=== PATIENT | male | born 1955 | race African-American/Black ===

== ENCOUNTER 2016-08-21 11:22 | Emergency (ER) | payer OTHER ==
[~2016-08-21] VITALS: Ht 182.9 cm; Wt 114.5 kg
[~2016-08-21 11:22] MED LIST: ACET-784 PO; AMLO-512 PO; ASPI-1093 PO; ATEN50TA PO; ATOR40TA28 PO; AUD NEB; BACL10TA PO; BISA10S PR; DSS100 PO; FLUT16H NASAL; FURO20 PO; GABA-533 PO; GLIP10TA9 PO; IBUP-1547 PO; INSNOV SQ; MET750 PO; METF500T4 PO; MOM30 PO; NICO21T TD; NIZO215C TP; OXYC-158 PO; PANT40TA25 PO; PERID15L MM; PIOG45TA PO; PSEU-191 PO; QUET100T PO; RIVA20TA PO; SIMV-261 PO; TRI115C TP
[2016-08-21 11:31] LABS: GLUCOSE,POINT OF CARE 237 MG/DL (70-110)
[2016-08-21 14:08] LABS: BASOPHILS % (AUTO) 0.2 % (0.0-2.0); EOSINOPHILS % (AUTO) 3.4 % (1.0-6.0); HEMATOCRIT 40.9 % (41-53); HEMOGLOBIN 13.6 g/dL (13.5-17.5); LYMPHOCYTES # (AUTO) 1.3 K/uL (1.0-4.8); LYMPHOCYTES % (AUTO) 17.4 % (22.0-44.0); MEAN CORPUSCULAR HEMOGLOBIN 28.4 pg (26.0-34.0); MEAN CORPUSCULAR HGB CONC 33.3 G/dL (31.0-37.0); MEAN CORPUSCULAR VOLUME 85 fL (80-100); MONOCYTES # (AUTO) 0.5 K/uL (0.1-1.0); MONOCYTES % (AUTO) 6.6 % (2.0-9.0); NEUTROPHILS # (AUTO) 5.5 K/uL (1.8-7.7); NEUTROPHILS % (AUTO) 72.4 % (40.0-70.0); PLATELET COUNT (AUTO) 255 K/uL (150-450); RED CELL DISTRIBUTION WIDTH 13.8 % (11.5-14.5); WHITE BLOOD COUNT (AUTO) 7.6 K/uL (4.5-11.0)
[2016-08-21 14:12] LABS: ANION GAP 6 mmol/L (8-16); CALCIUM, TOTAL 8.3 mg/dL (8.8-10.5); CARBON DIOXIDE 31 mmol/L (22-29); CHLORIDE 100 mmol/L (98-107); CREATININE 1.01 mg/dL (0.60-1.30); GLOMERULAR FILTR. RATE CALC > 60 mL/min (>60); POTASSIUM 3.7 mmol/L (3.5-5.1); SODIUM SERUM 137 mmol/L (136-145); UREA NITROGEN, BLOOD 9 mg/dL (7-18)
[2016-08-21 14:18] LABS: ALANINE AMINOTRANSFERASE 31 U/L (12-78); ALBUMIN 3.9 g/dL (3.4-5.0); ASPARTATE AMINOTRANSFERASE 22 U/L (15-37); BILIRUBIN,TOTAL 0.6 mg/dL (0.1-1.0); TOTAL PROTEIN, SERUM 7.2 g/dL (6.4-8.2)
[2016-08-21 14:20] LABS: PROTHROMBIN TIME 10.7 SEC (9.4-11.6)
[2016-08-21 14:25] LABS: APPEARANCE,URINE CLEAR (CLEAR); GLUCOSE, URINE (UA) 100 mg/dL (NEGATIVE); KETONES,URINE NEGATIVE (NEGATIVE); LEUKOCYTE ESTERASE ,URINE NEGATIVE (NEGATIVE); OCCULT BLOOD,URINE NEGATIVE (NEGATIVE); PROTEIN,URINE NEGATIVE (NEGATIVE)
[2016-08-21 14:28] LABS: B-TYPE NATRIURETIC PEPTIDE 41 pg/mL (0-100)
[2016-08-21 14:32] LABS: ADD UA MICROSCOPIC YES
[2016-08-21 14:33] LABS: RBC,URINE None Seen /HPF (0-2); WBC,URINE 0-2 /HPF (0-5)
[2016-08-21 14:34] LABS: SQUAMOUS EPITHELIAL CELL,UR Few /LPF (None Seen)
[2016-08-21 16:06] VITALS: BP 147/82
== END 2016-08-21 16:09 | disposition home or self-care (01) ==
LOC: EMS 11:23
DX: I10 Essential (primary) hypertension (principal); R10.9 Unspecified abdominal pain; G89.29 Other chronic pain; R51 Headache; M54.9 Dorsalgia, unspecified; F20.9 Schizophrenia, unspecified; E11.40 Type 2 diabetes mellitus with diabetic neuropathy, unspecified; E78.00 Pure hypercholesterolemia, unspecified; F17.210 Nicotine dependence, cigarettes, uncomplicated; Z86.73 Personal history of transient ischemic attack (TIA), and cerebral infarction without residual deficits; Z79.82 Long term (current) use of aspirin; Z79.4 Long term (current) use of insulin
CPT/HCPCS: 82962; 93005; 99285

== ENCOUNTER 2018-04-27 09:23 | Inpatient (IN) | payer OTHER ==
[~2018-04-27] VITALS: Ht 182.9 cm; Wt 137.0 kg
[~2018-04-27 09:23] MED LIST changes: +APIX5TAB PO; -ASPI-1093 PO; -ATEN50TA PO; -BACL10TA PO; -BISA10S PR; -GABA-533 PO; -GLIP10TA9 PO; +GLYC1TAB11 PO; -IBUP-1547 PO; +IBUP-2071 PO; -INSNOV SQ; +METF-960 PO; -METF500T4 PO; -NICO21T TD; -NIZO215C TP; -PANT40TA25 PO; -PERID15L MM; -PIOG45TA PO; +PIOG45TA4 PO; +PREG75 PO; -QUET100T PO; -RIVA20TA PO; +SITA25 PO; -TRI115C TP
[2018-04-27] MEDS ORDERED: IOVERSOL 350 MG/ML 150 ML VIAL ONE (09:37)
[2018-04-27] MEDS ORDERED: SODIUM CHLORIDE 0.9% 100 ML ONE (09:37)
[2018-04-27 09:50] LABS: EOSINOPHILS % (AUTO) 3.6 % (1.0-6.0); HEMATOCRIT 44.3 % (41-53); HEMOGLOBIN 15.6 g/dL (13.5-17.5); LYMPHOCYTES # (AUTO) 1.4 K/uL (1.0-4.8); MEAN CORPUSCULAR HEMOGLOBIN 30.5 pg (26.0-34.0); MEAN CORPUSCULAR HGB CONC 35.3 G/dL (31.0-37.0); MEAN CORPUSCULAR VOLUME 86 fL (80-100); MONOCYTES # (AUTO) 0.7 K/uL (0.1-1.0); MONOCYTES % (AUTO) 9.8 % (2.0-9.0); NEUTROPHILS # (AUTO) 4.4 K/uL (1.8-7.7); NEUTROPHILS % (AUTO) 65.6 % (40.0-70.0); PLATELET COUNT (AUTO) 203 K/uL (150-450); RED BLOOD CELL COUNT(AUTO) 5.13 MIL/uL (4.50-5.90); RED CELL DISTRIBUTION WIDTH 13.6 % (11.5-14.5)
[2018-04-27 10:00] LABS: ANION GAP 6 mmol/L (8-16); CALCIUM, TOTAL 8.6 mg/dL (8.8-10.5); CARBON DIOXIDE 32 mmol/L (22-29); CHLORIDE 97 mmol/L (98-107); CREATININE 1.09 mg/dL (0.60-1.30); GLOMERULAR FILTR. RATE CALC > 60 mL/min (>60); GLUCOSE,RANDOM 245 mg/dL (70-110); POTASSIUM 3.8 mmol/L (3.5-5.1); SODIUM SERUM 135 mmol/L (136-145); UREA NITROGEN, BLOOD 12 mg/dL (7-18)
[2018-04-27 10:06] LABS: ALANINE AMINOTRANSFERASE 42 U/L (12-78); ALBUMIN 4.1 g/dL (3.4-5.0); ALKALINE PHOSPHATASE 81 U/L (46-116); ASPARTATE AMINOTRANSFERASE 26 U/L (15-37); BILIRUBIN,TOTAL 0.8 mg/dL (0.1-1.0); TOTAL PROTEIN, SERUM 7.3 g/dL (6.4-8.2)
[2018-04-27 10:25] LABS: PROTHROMBIN TIME 10.6 SEC (9.4-11.6)
[2018-04-27] MEDS ORDERED: ASPIRIN 325 MG EC TABLET PO ONE (10:30)
[2018-04-27] MEDS ORDERED: SODIUM CHLORIDE 0.9% 1,000 ML IV ONE (10:30)
[2018-04-27] MEDS ORDERED: TEST200V21 SQ (10:47)
[2018-04-27] MEDS ORDERED: CARV12 PO (10:47)
[2018-04-27] MEDS ORDERED: SIMV-259 PO (10:47)
[2018-04-27] MEDS ORDERED: LISI-662 PO (10:47)
[2018-04-27] MEDS ORDERED: TAMS0.4C32 PO (10:47)
[2018-04-27] MEDS ORDERED: KETOROLAC TROMETHAMINE 30 MG/ML VIAL IVP ONE (11:15)
[2018-04-27] MEDS ORDERED: AMLO-511 PO (11:39)
[2018-04-27] MEDS ORDERED: PIOG15TA6 PO (11:39)
[2018-04-27] MEDS ORDERED: FURO80 PO (11:39)
[2018-04-27] MEDS ORDERED: MAGNESIUM HYDROXIDE SUSPENSION 30 ML UDCUP PO PRN (11:45)
[2018-04-27] MEDS: TAMSULOSIN HCL 0.4 MG CAPSULE PO SCH (11:45)
[2018-04-27] MEDS ORDERED: GLYCOPYRROLATE 1 MG TABLET PO PRN (11:45)
[2018-04-27] MEDS ORDERED: ACETAMINOPHEN 325 MG TABLET PO PRN ×2 (11:45)
[2018-04-27] MEDS: SIMVASTATIN 10 MG TABLET PO SCH (11:45)
[2018-04-27] MEDS: CARVEDILOL 12.5 MG TABLET PO SCH ×2 (11:45→20:04)
[2018-04-27] MEDS: LISINOPRIL 20 MG TABLET PO SCH (11:45)
[2018-04-27] MEDS ORDERED: DEXTROSE 50%-WATER 25 GM/50 ML SYRINGE IVP PRN (11:45)
[2018-04-27] MEDS ORDERED: OxyCODONE HCL/ACETAMINOPHEN 5-325 MG TABLET PO PRN (11:45)
[2018-04-27] MEDS: AmLODIPine BESYLATE 5 MG TABLET PO SCH (11:45)
[2018-04-27] MEDS: PREGABALIN 75 MG CAPSULE PO SCH ×2 (11:45→20:04)
[2018-04-27] MEDS ORDERED: ONDANSETRON HCL 4 MG/2 ML VIAL IVP PRN ×2 (11:45)
[2018-04-27] MEDS: FUROSEMIDE 80 MG TABLET PO SCH (11:45)
[2018-04-27] MEDS ORDERED: 0.9% SODIUM CHLORIDE 10 ML SYRINGE IVP PRN ×2 (11:45)
[2018-04-27] MEDS: APIXABAN 5 MG TABLET PO SCH ×2 (11:45→20:04)
[2018-04-27 12:38] VITALS: BP 153/92
[2018-04-27] MEDS: PANTOPRAZOLE SODIUM 40 MG/VIAL IVP SCH (13:24)
[2018-04-27] MEDS: DOCUSATE SODIUM 100 MG CAPSULE PO SCH ×2 (13:24→20:07)
[2018-04-27] MEDS: ATORVASTATIN CALCIUM 40 MG TABLET PO SCH (13:25)
[2018-04-27] MEDS: OxyCODONE HCL/ACETAMINOPHEN 5-325 MG TABLET PO PRN ×2 (13:25→20:04)
[2018-04-27] MEDS: INSULIN LISPRO 100 UNITS/ML SQ PRN ×3 (13:29→20:06)
[2018-04-27 14:50] LABS: CHOLESTEROL 104 mg/dL (131-200); HDL CHOLESTEROL 26 mg/dL (40-60); LDL CHOL (CALC.) 38 mg/dL (0-130); THYROID STIMULATING HORMONE 1.47 uIU/mL (0.36-3.74); TRIGLYCERIDES 200 mg/dL (15-150)
[2018-04-27 15:18] VITALS: BP 111/50
[2018-04-27 15:21] VITALS: BP 148/88
[2018-04-27] MEDS: GABAPENTIN 300 MG CAPSULE PO SCH ×2 (16:37→20:04)
[2018-04-27] MEDS: KETOROLAC TROMETHAMINE 15 MG/ML VIAL IVP PRN (16:46)
[2018-04-27 19:03] LABS: GLUCOMETER DEV NAME(LOC) 5S 2R; GLUCOSE,POINT OF CARE 187 MG/DL (70-110)
[2018-04-27 20:03] VITALS: BP 145/75
[2018-04-27 21:08] LABS: GLUCOMETER DEV NAME(LOC) 5N 1P; GLUCOSE,POINT OF CARE 246 MG/DL (70-110)
[2018-04-27] MEDS: MORPHINE SULFATE 4 MG/ML SYRINGE IVP PRN (22:45)
[2018-04-27 23:37] VITALS: BP 167/92
[2018-04-28] VITALS (7 sets, daily range): BP systolic 142–151; BP diastolic 57–88
[2018-04-28] MEDS: KETOROLAC TROMETHAMINE 15 MG/ML VIAL IVP PRN ×2 (04:08→17:46)
[2018-04-28 05:49] LABS: BASOPHILS % (AUTO) 0.4 % (0.0-2.0); EOSINOPHILS % (AUTO) 3.4 % (1.0-6.0); HEMATOCRIT 42.8 % (41-53); HEMOGLOBIN 14.9 g/dL (13.5-17.5); LYMPHOCYTES % (AUTO) 19.1 % (22.0-44.0); MEAN CORPUSCULAR HEMOGLOBIN 30.2 pg (26.0-34.0); MEAN CORPUSCULAR HGB CONC 34.8 G/dL (31.0-37.0); MEAN CORPUSCULAR VOLUME 87 fL (80-100); MONOCYTES # (AUTO) 0.5 K/uL (0.1-1.0); MONOCYTES % (AUTO) 9.6 % (2.0-9.0); NEUTROPHILS # (AUTO) 3.6 K/uL (1.8-7.7); NEUTROPHILS % (AUTO) 67.5 % (40.0-70.0); PLATELET COUNT (AUTO) 184 K/uL (150-450); RED BLOOD CELL COUNT(AUTO) 4.92 MIL/uL (4.50-5.90); RED CELL DISTRIBUTION WIDTH 13.6 % (11.5-14.5)
[2018-04-28 06:02] LABS: ANION GAP 4 mmol/L (8-16); CALCIUM, TOTAL 7.7 mg/dL (8.8-10.5); CARBON DIOXIDE 33 mmol/L (22-29); CHLORIDE 99 mmol/L (98-107); GLOMERULAR FILTR. RATE CALC > 60 mL/min (>60); GLUCOSE,RANDOM 231 mg/dL (70-110); POTASSIUM 3.7 mmol/L (3.5-5.1); SODIUM SERUM 136 mmol/L (136-145); UREA NITROGEN, BLOOD 9 mg/dL (7-18)
[2018-04-28] MEDS: INSULIN LISPRO 100 UNITS/ML SQ PRN ×4 (06:30→20:27)
[2018-04-28] MEDS: OxyCODONE HCL/ACETAMINOPHEN 5-325 MG TABLET PO PRN ×3 (07:11→21:34)
[2018-04-28] MEDS: DOCUSATE SODIUM 100 MG CAPSULE PO SCH ×2 (08:17→21:00)
[2018-04-28] MEDS: PANTOPRAZOLE SODIUM 40 MG/VIAL IVP SCH (08:17)
[2018-04-28] MEDS: APIXABAN 5 MG TABLET PO SCH ×2 (08:18→20:21)
[2018-04-28] MEDS: CARVEDILOL 12.5 MG TABLET PO SCH ×2 (08:18→20:21)
[2018-04-28] MEDS: TAMSULOSIN HCL 0.4 MG CAPSULE PO SCH (08:18)
[2018-04-28] MEDS: ATORVASTATIN CALCIUM 40 MG TABLET PO SCH (08:19)
[2018-04-28] MEDS: GABAPENTIN 300 MG CAPSULE PO SCH ×3 (08:19→20:21)
[2018-04-28] MEDS: PREGABALIN 75 MG CAPSULE PO SCH ×2 (08:19→20:21)
[2018-04-28] MEDS: FUROSEMIDE 80 MG TABLET PO SCH (08:19)
[2018-04-28] MEDS: LISINOPRIL 20 MG TABLET PO SCH (08:20)
[2018-04-28] MEDS: SIMVASTATIN 10 MG TABLET PO SCH (08:21)
[2018-04-28] MEDS: AmLODIPine BESYLATE 5 MG TABLET PO SCH ×2 (08:22→08:25)
[2018-04-28] MEDS: MORPHINE SULFATE 4 MG/ML SYRINGE IVP PRN (10:24)
[2018-04-28 14:13] LABS: GLUCOMETER DEV NAME(LOC) 5S 1N; GLUCOSE,POINT OF CARE 207 MG/DL (70-110)
[2018-04-28 14:13] LABS: GLUCOMETER DEV NAME(LOC) 5S 2R; GLUCOSE,POINT OF CARE 269 MG/DL (70-110)
[2018-04-28 14:13] LABS: GLUCOMETER DEV NAME(LOC) 5S 2R; GLUCOSE,POINT OF CARE 314 MG/DL (70-110)
[2018-04-28] MEDS: NICOTINE 21 MG/24 HOUR PATCH TD SCH (19:48)
[2018-04-28] MEDS: ZOLPIDEM TARTRATE 5 MG TABLET PO PRN (23:30)
[2018-04-29] MEDS: MORPHINE SULFATE 4 MG/ML SYRINGE IVP PRN ×2 (02:52→15:11)
[2018-04-29 02:53] LABS: GLUCOMETER DEV NAME(LOC) 5S 1N; GLUCOSE,POINT OF CARE 178 MG/DL (70-110)
[2018-04-29 02:53] LABS: GLUCOMETER DEV NAME(LOC) 5S 1N; GLUCOSE,POINT OF CARE 264 MG/DL (70-110)
[2018-04-29 04:40] VITALS: BP 165/83
[2018-04-29] MEDS: INSULIN LISPRO 100 UNITS/ML SQ PRN ×4 (05:57→20:34)
[2018-04-29] MEDS: OxyCODONE HCL/ACETAMINOPHEN 5-325 MG TABLET PO PRN ×3 (06:37→18:36)
[2018-04-29 06:48] LABS: GLUCOMETER DEV NAME(LOC) 5S 1N; GLUCOSE,POINT OF CARE 196 MG/DL (70-110)
[2018-04-29] MEDS ORDERED: LORazepam 2 MG/ML VIAL IVP ONE (07:30)
[2018-04-29 07:31] LABS: BASOPHILS % (AUTO) 0.6 % (0.0-2.0); EOSINOPHILS % (AUTO) 3.5 % (1.0-6.0); HEMATOCRIT 41.7 % (41-53); HEMOGLOBIN 14.7 g/dL (13.5-17.5); LYMPHOCYTES % (AUTO) 16.6 % (22.0-44.0); MEAN CORPUSCULAR HEMOGLOBIN 30.2 pg (26.0-34.0); MEAN CORPUSCULAR HGB CONC 35.3 G/dL (31.0-37.0); MEAN CORPUSCULAR VOLUME 86 fL (80-100); MONOCYTES # (AUTO) 0.6 K/uL (0.1-1.0); MONOCYTES % (AUTO) 10.8 % (2.0-9.0); NEUTROPHILS # (AUTO) 3.9 K/uL (1.8-7.7); NEUTROPHILS % (AUTO) 68.5 % (40.0-70.0); PLATELET COUNT (AUTO) 183 K/uL (150-450); RED BLOOD CELL COUNT(AUTO) 4.87 MIL/uL (4.50-5.90); RED CELL DISTRIBUTION WIDTH 13.5 % (11.5-14.5)
[2018-04-29 07:38] LABS: ANION GAP 4 mmol/L (8-16); CARBON DIOXIDE 35 mmol/L (22-29); CHLORIDE 101 mmol/L (98-107); CREATININE 0.82 mg/dL (0.60-1.30); GLOMERULAR FILTR. RATE CALC > 60 mL/min (>60); GLUCOSE,RANDOM 173 mg/dL (70-110); POTASSIUM 3.9 mmol/L (3.5-5.1); SODIUM SERUM 140 mmol/L (136-145); UREA NITROGEN, BLOOD 10 mg/dL (7-18)
[2018-04-29 08:14] VITALS: BP 155/88
[2018-04-29] MEDS: CARVEDILOL 12.5 MG TABLET PO SCH ×2 (08:16→20:32)
[2018-04-29] MEDS: DOCUSATE SODIUM 100 MG CAPSULE PO SCH ×2 (08:16→20:32)
[2018-04-29] MEDS: APIXABAN 5 MG TABLET PO SCH ×2 (08:16→20:32)
[2018-04-29] MEDS: PANTOPRAZOLE SODIUM 40 MG/VIAL IVP SCH (08:16)
[2018-04-29] MEDS: AmLODIPine BESYLATE 5 MG TABLET PO SCH (08:17)
[2018-04-29] MEDS: FUROSEMIDE 80 MG TABLET PO SCH (08:17)
[2018-04-29] MEDS: ATORVASTATIN CALCIUM 40 MG TABLET PO SCH (08:17)
[2018-04-29] MEDS: GABAPENTIN 300 MG CAPSULE PO SCH ×3 (08:17→20:32)
[2018-04-29] MEDS: TAMSULOSIN HCL 0.4 MG CAPSULE PO SCH (08:17)
[2018-04-29] MEDS: NICOTINE 21 MG/24 HOUR PATCH TD SCH (08:18)
[2018-04-29] MEDS: LISINOPRIL 20 MG TABLET PO SCH (08:18)
[2018-04-29] MEDS: PREGABALIN 75 MG CAPSULE PO SCH ×2 (09:52→20:32)
[2018-04-29 11:20] VITALS: BP 143/72
[2018-04-29 15:43] VITALS: BP 156/84
[2018-04-29] MEDS ORDERED: QUEtiapine FUMARATE 25 MG TABLET PO PRN (18:00)
[2018-04-29 20:31] VITALS: BP 179/81
[2018-04-29] MEDS: OXYGEN THERAPY IH SCH (20:32)
[2018-04-29] MEDS: QUEtiapine FUMARATE 100 MG TABLET PO SCH ×2 (20:32→20:46)
[2018-04-29] MEDS: ZOLPIDEM TARTRATE 5 MG TABLET PO PRN (20:40)
[2018-04-30] VITALS (7 sets, daily range): BP systolic 137–179; BP diastolic 73–94
[2018-04-30] MEDS: OxyCODONE HCL/ACETAMINOPHEN 5-325 MG TABLET PO PRN ×5 (01:17→21:24)
[2018-04-30] MEDS: INSULIN LISPRO 100 UNITS/ML SQ PRN ×4 (05:51→21:25)
[2018-04-30 07:58] LABS: GLUCOMETER DEV NAME(LOC) 5S 1N; GLUCOSE,POINT OF CARE 208 MG/DL (70-110)
[2018-04-30] MEDS: PANTOPRAZOLE SODIUM 40 MG/VIAL IVP SCH (08:56)
[2018-04-30] MEDS: GABAPENTIN 300 MG CAPSULE PO SCH ×3 (08:56→21:23)
[2018-04-30] MEDS: DOCUSATE SODIUM 100 MG CAPSULE PO SCH ×2 (08:56→21:23)
[2018-04-30] MEDS: AmLODIPine BESYLATE 5 MG TABLET PO SCH (08:56)
[2018-04-30] MEDS: ATORVASTATIN CALCIUM 40 MG TABLET PO SCH (08:56)
[2018-04-30] MEDS: PREGABALIN 75 MG CAPSULE PO SCH ×2 (08:57→21:23)
[2018-04-30] MEDS: APIXABAN 5 MG TABLET PO SCH ×2 (08:57→21:23)
[2018-04-30] MEDS: CARVEDILOL 12.5 MG TABLET PO SCH ×2 (08:57→21:23)
[2018-04-30] MEDS: LISINOPRIL 20 MG TABLET PO SCH (08:57)
[2018-04-30] MEDS: NICOTINE 21 MG/24 HOUR PATCH TD SCH (08:58)
[2018-04-30] MEDS: FUROSEMIDE 80 MG TABLET PO SCH (08:59)
[2018-04-30] MEDS: OXYGEN THERAPY IH SCH ×2 (09:11→21:30)
[2018-04-30] MEDS: TAMSULOSIN HCL 0.4 MG CAPSULE PO SCH (09:11)
[2018-04-30] MEDS: QUEtiapine FUMARATE 100 MG TABLET PO SCH (21:00)
[2018-04-30] MEDS: ZOLPIDEM TARTRATE 5 MG TABLET PO PRN (22:31)
[2018-04-30 23:08] LABS: GLUCOMETER DEV NAME(LOC) 5S 2R; GLUCOSE,POINT OF CARE 209 MG/DL (70-110)
[2018-05-01] MEDS: OxyCODONE HCL/ACETAMINOPHEN 5-325 MG TABLET PO PRN ×5 (02:10→23:26)
[2018-05-01 04:55] VITALS: BP 156/95
[2018-05-01] MEDS: INSULIN LISPRO 100 UNITS/ML SQ PRN ×4 (05:28→20:54)
[2018-05-01 07:47] VITALS: BP 164/77
[2018-05-01] MEDS: ATORVASTATIN CALCIUM 40 MG TABLET PO SCH (08:29)
[2018-05-01] MEDS: CARVEDILOL 12.5 MG TABLET PO SCH ×2 (08:30→20:45)
[2018-05-01] MEDS: GABAPENTIN 300 MG CAPSULE PO SCH ×3 (08:30→20:49)
[2018-05-01] MEDS: TAMSULOSIN HCL 0.4 MG CAPSULE PO SCH (08:31)
[2018-05-01] MEDS: DOCUSATE SODIUM 100 MG CAPSULE PO SCH ×2 (08:31→20:45)
[2018-05-01] MEDS: NICOTINE 21 MG/24 HOUR PATCH TD SCH (08:32)
[2018-05-01] MEDS: APIXABAN 5 MG TABLET PO SCH ×2 (08:33→20:48)
[2018-05-01] MEDS: PANTOPRAZOLE SODIUM 40 MG/VIAL IVP SCH (08:33)
[2018-05-01] MEDS: FUROSEMIDE 80 MG TABLET PO SCH (08:34)
[2018-05-01] MEDS: PREGABALIN 75 MG CAPSULE PO SCH ×2 (08:35→20:48)
[2018-05-01] MEDS: AmLODIPine BESYLATE 5 MG TABLET PO SCH (08:37)
[2018-05-01] MEDS: OXYGEN THERAPY IH SCH ×2 (08:45→20:44)
[2018-05-01 09:47] VITALS: BP 158/84
[2018-05-01] MEDS: LISINOPRIL 20 MG TABLET PO SCH (09:52)
[2018-05-01 11:32] VITALS: BP 155/78
[2018-05-01] MEDS: DEXAMETHASONE 4 MG TABLET PO SCH ×2 (12:35→20:45)
[2018-05-01 15:23] VITALS: BP 153/62
[2018-05-01 19:55] VITALS: BP 157/97
[2018-05-01] MEDS: QUEtiapine FUMARATE 100 MG TABLET PO SCH (20:49)
[2018-05-01] MEDS: MORPHINE SULFATE 4 MG/ML SYRINGE IVP PRN (20:50)
[2018-05-01 21:09] LABS: GLUCOMETER DEV NAME(LOC) 5N 1P; GLUCOSE,POINT OF CARE 273 MG/DL (70-110)
[2018-05-01 21:09] LABS: GLUCOMETER DEV NAME(LOC) 5N 1P; GLUCOSE,POINT OF CARE 240 MG/DL (70-110)
[2018-05-01 21:09] LABS: GLUCOMETER DEV NAME(LOC) 5N 1P; GLUCOSE,POINT OF CARE 250 MG/DL (70-110)
[2018-05-01 21:09] LABS: GLUCOMETER DEV NAME(LOC) 5N 1P; GLUCOSE,POINT OF CARE 268 MG/DL (70-110)
[2018-05-01 21:09] LABS: GLUCOMETER DEV NAME(LOC) 5N 1P; GLUCOSE,POINT OF CARE 260 MG/DL (70-110)
[2018-05-01 21:10] LABS: GLUCOMETER DEV NAME(LOC) 5S 2R; GLUCOSE,POINT OF CARE 267 MG/DL (70-110)
[2018-05-01] MEDS: ZOLPIDEM TARTRATE 5 MG TABLET PO PRN (22:08)
[2018-05-02 00:28] VITALS: BP 153/67
[2018-05-02] MEDS: OxyCODONE HCL/ACETAMINOPHEN 5-325 MG TABLET PO PRN ×2 (03:54→09:30)
[2018-05-02 05:04] VITALS: BP 169/90
[2018-05-02] MEDS: INSULIN LISPRO 100 UNITS/ML SQ PRN (06:12)
[2018-05-02 06:29] LABS: BASOPHILS % (AUTO) 0.3 % (0.0-2.0); EOSINOPHILS % (AUTO) 0 % (1.0-6.0); HEMATOCRIT 46.9 % (41-53); HEMOGLOBIN 16.9 g/dL (13.5-17.5); LYMPHOCYTES # (AUTO) 0.6 K/uL (1.0-4.8); LYMPHOCYTES % (AUTO) 7.7 % (22.0-44.0); MEAN CORPUSCULAR HEMOGLOBIN 30.8 pg (26.0-34.0); MEAN CORPUSCULAR VOLUME 86 fL (80-100); MONOCYTES # (AUTO) 0.3 K/uL (0.1-1.0); NEUTROPHILS # (AUTO) 6.9 K/uL (1.8-7.7); PLATELET COUNT (AUTO) 238 K/uL (150-450); RED BLOOD CELL COUNT(AUTO) 5.47 MIL/uL (4.50-5.90); RED CELL DISTRIBUTION WIDTH 13.4 % (11.5-14.5)
[2018-05-02 06:48] LABS: ANION GAP 2 mmol/L (8-16); CALCIUM, TOTAL 8.9 mg/dL (8.8-10.5); CARBON DIOXIDE 34 mmol/L (22-29); CHLORIDE 95 mmol/L (98-107); CREATININE 1.16 mg/dL (0.60-1.30); GLOMERULAR FILTR. RATE CALC > 60 mL/min (>60); GLUCOSE,RANDOM 330 mg/dL (70-110); POTASSIUM 4.7 mmol/L (3.5-5.1); SODIUM SERUM 131 mmol/L (136-145); UREA NITROGEN, BLOOD 13 mg/dL (7-18)
[2018-05-02 07:11] VITALS: BP 142/82
[2018-05-02] MEDS: OXYGEN THERAPY IH SCH (08:55)
[2018-05-02] MEDS: PANTOPRAZOLE SODIUM 40 MG/VIAL IVP SCH (09:18)
[2018-05-02] MEDS: AmLODIPine BESYLATE 5 MG TABLET PO SCH (09:25)
[2018-05-02] MEDS: LISINOPRIL 20 MG TABLET PO SCH (09:25)
[2018-05-02] MEDS: DOCUSATE SODIUM 100 MG CAPSULE PO SCH (09:25)
[2018-05-02] MEDS: TAMSULOSIN HCL 0.4 MG CAPSULE PO SCH (09:25)
[2018-05-02] MEDS: ATORVASTATIN CALCIUM 40 MG TABLET PO SCH (09:25)
[2018-05-02] MEDS: FUROSEMIDE 80 MG TABLET PO SCH (09:26)
[2018-05-02] MEDS: GABAPENTIN 300 MG CAPSULE PO SCH (09:26)
[2018-05-02] MEDS: APIXABAN 5 MG TABLET PO SCH (09:26)
[2018-05-02] MEDS: NICOTINE 21 MG/24 HOUR PATCH TD SCH (09:27)
[2018-05-02] MEDS: DEXAMETHASONE 4 MG TABLET PO SCH (09:28)
[2018-05-02] MEDS: PREGABALIN 75 MG CAPSULE PO SCH (09:28)
[2018-05-02] MEDS ORDERED: METH8TAB PO (10:59)
[2018-05-02 11:08] VITALS: BP 156/97
[2018-05-02] MEDS: CARVEDILOL 12.5 MG TABLET PO SCH (11:35)
[2018-05-03 12:04] LABS: GLUCOMETER DEV NAME(LOC) 5S 1N; GLUCOSE,POINT OF CARE 312 MG/DL (70-110)
[2018-05-03 12:04] LABS: GLUCOMETER DEV NAME(LOC) 5S 1N; GLUCOSE,POINT OF CARE 364 MG/DL (70-110)
[2018-05-03 12:04] LABS: GLUCOMETER DEV NAME(LOC) 5S 1N; GLUCOSE,POINT OF CARE 332 MG/DL (70-110)
[2018-05-03 12:04] LABS: GLUCOMETER DEV NAME(LOC) 5S 1N; GLUCOSE,POINT OF CARE 321 MG/DL (70-110)
== END 2018-05-02 12:00 | disposition home or self-care (01) | DRG 47 ==
LOC: EMS 09:24 → 5S 11:14
PROVIDERS: ADMIT Internal Medicine; ATTEND Internal Medicine
DX: G45.9 Transient cerebral ischemic attack, unspecified (principal); E11.40 Type 2 diabetes mellitus with diabetic neuropathy, unspecified; R45.851 Suicidal ideations; M48.02 Spinal stenosis, cervical region; E78.00 Pure hypercholesterolemia, unspecified; I10 Essential (primary) hypertension; M47.22 Other spondylosis with radiculopathy, cervical region; F17.210 Nicotine dependence, cigarettes, uncomplicated; F20.9 Schizophrenia, unspecified; F60.0 Paranoid personality disorder; F32.9 Major depressive disorder, single episode, unspecified; F41.9 Anxiety disorder, unspecified; G89.29 Other chronic pain; M54.81 Occipital neuralgia; M79.18 Myalgia, other site; M77.9 Enthesopathy, unspecified; Z79.01 Long term (current) use of anticoagulants; Z86.718 Personal history of other venous thrombosis and embolism; Z79.899 Other long term (current) drug therapy; Z23 Encounter for immunization
CPT/HCPCS: 70496; 70551; 72141; 82947; 84443; 86850; 86900; 86901; 90686; 92610; 93005; 93306; 93880; 96361; 96374; 97116; 97162; 97530; 99291; C9113; G0378; J1885; J2060; J2270; J7030; J7050; J8540

== ENCOUNTER 2018-09-19 10:15 | Inpatient (IN) | payer OTHER ==
[~2018-09-19] VITALS: Ht 188 cm; Wt 136.7 kg
[~2018-09-19 10:15] MED LIST changes: -ACET-784 PO; +AMLO-511 PO; -AMLO-512 PO; -AUD NEB; +CARV12 PO; -DSS100 PO; -FLUT16H NASAL; -FURO20 PO; +FURO80 PO; -GLYC1TAB11 PO; -IBUP-2071 PO; +LISI-662 PO; -MET750 PO; -MOM30 PO; +NICO-650 TD; +PIOG15TA6 PO; -PIOG45TA4 PO; -PSEU-191 PO; +SENN-176 PO; -SIMV-261 PO; +TAMS0.4C32 PO; +TEST200V21 IM
[2018-09-19] MEDS ORDERED: RINGERS SOLUTION,LACTATED 1,000 ML IV ONE ×3 (10:24→15:29)
[2018-09-19] MEDS ORDERED: VANCOMYCIN HCL 1 GM/D5% WATER 200 ML IV ONE ×3 (12:30→15:00)
[2018-09-19] MEDS ORDERED: ACETAMINOPHEN 1000 MG/ISO-OSM 100 ML IV ONE (12:39)
[2018-09-19] MEDS ORDERED: PROPOFOL 1000 MG/ISO-OSM 100 ML IV ONE (12:54)
[2018-09-19 13:08] LABS: GLUCOMETER DEV NAME(LOC) SDS.; GLUCOSE,POINT OF CARE 149 MG/DL (70-110)
[2018-09-19] MEDS ORDERED: VANCOMYCIN HCL 1 GM/VIAL ONE ×2 (13:09→14:16)
[2018-09-19] MEDS ORDERED: BUPIVACAINE HCL/PF 0.5% 30 ML VIAL ONE (13:09)
[2018-09-19] MEDS ORDERED: BACITRACIN 50,000 UNITS/VIAL ONE (13:09)
[2018-09-19] MEDS ORDERED: BUPIVACAINE LIPOSOME/PF 1.3%-13.3MG/ML SUSPENSION 20 ML VIAL INJ ONE (13:15)
[2018-09-19] MEDS ORDERED: SODIUM CHLORIDE 0.9% 0 ML ONE (14:16)
[2018-09-19] MEDS ORDERED: HYDROmorphone 2 MG/ML SYRINGE IVP PRN (15:00)
[2018-09-19] MEDS ORDERED: MEPERIDINE-PF 25 MG/ML VIAL IVP PRN (15:00)
[2018-09-19] MEDS ORDERED: CYCLOBENZAPRINE HCL 10 MG TABLET PO PRN (15:00)
[2018-09-19] MEDS ORDERED: FentaNYL CITRATE-PF 100 MCG/2 ML VIAL IVP PRN (15:00)
[2018-09-19] MEDS ORDERED: SUGAMMADEX SODIUM 200 MG/2 ML VIAL IVP ONE (15:14)
[2018-09-19] MEDS: HYDROmorphone 2 MG/ML SYRINGE IVP PRN ×2 (16:20→16:30)
[2018-09-19] MEDS ORDERED: MEPERIDINE-PF 25 MG/ML VIAL ONE (16:22)
[2018-09-19] MEDS ORDERED: HYDROmorphone 2 MG/ML SYRINGE ONE (16:27)
[2018-09-19] MEDS ORDERED: FentaNYL CITRATE-PF 100 MCG/2 ML VIAL ONE (16:35)
[2018-09-19 18:09] VITALS: BP 144/80
[2018-09-19] MEDS: ACETAMINOPHEN 500 MG TABLET PO SCH ×2 (19:00→19:58)
[2018-09-19] MEDS ORDERED: MAGNESIUM HYDROXIDE SUSPENSION 30 ML UDCUP PO PRN (19:45)
[2018-09-19] MEDS ORDERED: HYDROCODONE/ACETAMINOPHEN 5-325 MG TABLET PO PRN (19:45)
[2018-09-19] MEDS ORDERED: IPRATROPIUM BROMIDE 0.5 MG/2.5 ML NEB SOLUTION NEB PRN (19:45)
[2018-09-19] MEDS ORDERED: ONDANSETRON HCL 4 MG/2 ML VIAL IVP PRN (19:45)
[2018-09-19] MEDS ORDERED: BISACODYL 10 MG RECTAL RECTAL SUPPOSITORY PR PRN (19:45)
[2018-09-19] MEDS ORDERED: ALBUTEROL SULFATE 2.5 MG/0.5 ML NEB SOLUTION NEB PRN (19:45)
[2018-09-19] MEDS ORDERED: ACETAMINOPHEN 325 MG TABLET PO PRN (19:45)
[2018-09-19] MEDS ORDERED: ZOLPIDEM TARTRATE 5 MG TABLET PO PRN (19:45)
[2018-09-19 19:58] VITALS: BP 152/79
[2018-09-19 19:58] LABS: GLUCOMETER DEV NAME(LOC) 4E.; GLUCOSE,POINT OF CARE 184 MG/DL (70-110)
[2018-09-19] MEDS: MORPHINE SULFATE 2 MG/ML SYRINGE IVP PRN (20:09)
[2018-09-19] MEDS: AmLODIPine BESYLATE 5 MG TABLET PO SCH (20:10)
[2018-09-19] MEDS: DOCUSATE SODIUM 100 MG CAPSULE PO SCH (20:10)
[2018-09-19] MEDS ORDERED: DEXTROSE 50%-WATER 25 GM/50 ML SYRINGE IVP PRN (21:00)
[2018-09-19] MEDS: INSULIN LISPRO 100 UNITS/ML SQ PRN (21:10)
[2018-09-19] MEDS: NICOTINE 21 MG/24 HOUR PATCH TD SCH (21:11)
[2018-09-19] MEDS: CARVEDILOL 12.5 MG TABLET PO SCH (21:11)
[2018-09-19] MEDS: PREGABALIN 75 MG CAPSULE PO SCH (21:11)
[2018-09-19] MEDS ORDERED: KETOROLAC TROMETHAMINE 15 MG/ML VIAL IVP SCH (22:00)
[2018-09-19] MEDS: KETOROLAC TROMETHAMINE 30 MG/ML VIAL IVP SCH (22:19)
[2018-09-20] MEDS: GLYCOPYRROLATE 1 MG TABLET PO SCH ×4 (00:04→17:39)
[2018-09-20 00:06] VITALS: BP 124/73
[2018-09-20] MEDS: MORPHINE SULFATE 2 MG/ML SYRINGE IVP PRN ×5 (00:10→14:43)
[2018-09-20] MEDS: ACETAMINOPHEN 500 MG TABLET PO SCH ×3 (01:00→13:00)
[2018-09-20 02:34] LABS: GLUCOMETER DEV NAME(LOC) 4E.; GLUCOSE,POINT OF CARE 207 MG/DL (70-110)
[2018-09-20] MEDS: KETOROLAC TROMETHAMINE 30 MG/ML VIAL IVP SCH ×3 (04:00→15:59)
[2018-09-20 04:07] VITALS: BP 143/74
[2018-09-20] MEDS: INSULIN LISPRO 100 UNITS/ML SQ PRN ×3 (06:06→17:18)
[2018-09-20] MEDS ORDERED: KETAMINE HCL 50 MG/ML 10 ML VIAL IVP ONE (06:07)
[2018-09-20] MEDS ORDERED: DEXAMETHASONE SOD PHOS 4 MG/ML VIAL IVP ONE (06:07)
[2018-09-20] MEDS ORDERED: LIDOCAINE/PF 2% 5 ML VIAL IM ONE (06:07)
[2018-09-20] MEDS ORDERED: KETOROLAC TROMETHAMINE 60 MG/2 ML VIAL IM ONE (06:07)
[2018-09-20] MEDS ORDERED: SUCCINYLCHOLINE CHLORIDE 20 MG/ML 10 ML VIAL IVP ONE (06:07)
[2018-09-20] MEDS ORDERED: ROCURONIUM BROMIDE 10 MG/ML 5 ML VIAL IVP ONE (06:07)
[2018-09-20] MEDS ORDERED: MIDAZOLAM HCL 2 MG/2 ML VIAL IVP ONE (06:07)
[2018-09-20] MEDS ORDERED: ONDANSETRON HCL 4 MG/2 ML VIAL IVP ONE (06:07)
[2018-09-20] MEDS ORDERED: PROPOFOL 1% 20 ML VIAL IVP ONE (06:07)
[2018-09-20 06:08] LABS: BASOPHILS % (AUTO) 0.2 % (0.0-2.0); EOSINOPHILS % (AUTO) 0 % (1.0-6.0); HEMOGLOBIN 15.8 g/dL (13.5-17.5); LYMPHOCYTES # (AUTO) 0.5 K/uL (1.0-4.8); LYMPHOCYTES % (AUTO) 6.2 % (22.0-44.0); MEAN CORPUSCULAR HEMOGLOBIN 30.8 pg (26.0-34.0); MEAN CORPUSCULAR HGB CONC 35.2 G/dL (31.0-37.0); MEAN CORPUSCULAR VOLUME 88 fL (80-100); MONOCYTES # (AUTO) 0.2 K/uL (0.1-1.0); MONOCYTES % (AUTO) 2.8 % (2.0-9.0); NEUTROPHILS # (AUTO) 7.9 K/uL (1.8-7.7); PLATELET COUNT (AUTO) 195 K/uL (150-450); RED BLOOD CELL COUNT(AUTO) 5.13 MIL/uL (4.50-5.90); RED CELL DISTRIBUTION WIDTH 13.5 % (11.5-14.5)
[2018-09-20 06:19] LABS: ALANINE AMINOTRANSFERASE 27 U/L (12-78); ALBUMIN 3.8 g/dL (3.4-5.0); ALKALINE PHOSPHATASE 65 U/L (46-116); ANION GAP 7 mmol/L (8-16); ASPARTATE AMINOTRANSFERASE 18 U/L (15-37); BILIRUBIN,TOTAL 0.7 mg/dL (0.1-1.0); CALCIUM, TOTAL 8.9 mg/dL (8.8-10.5); CARBON DIOXIDE 29 mmol/L (22-29); CHLORIDE 100 mmol/L (98-107); CREATININE 0.95 mg/dL (0.60-1.30); GLOMERULAR FILTR. RATE CALC > 60 mL/min (>60); GLUCOSE,RANDOM 217 mg/dL (70-110); POTASSIUM 4.2 mmol/L (3.5-5.1); SODIUM SERUM 136 mmol/L (136-145); TOTAL PROTEIN, SERUM 7.4 g/dL (6.4-8.2); UREA NITROGEN, BLOOD 12 mg/dL (7-18)
[2018-09-20 06:24] LABS: GLUCOMETER DEV NAME(LOC) 4E.; GLUCOSE,POINT OF CARE 223 MG/DL (70-110)
[2018-09-20] MEDS ORDERED: LINACLOTIDE 72 MCG PO SCH (06:30)
[2018-09-20] MEDS ORDERED: LINACLOTIDE 290 MCG CAPSULE PO SCH (06:30)
[2018-09-20 06:49] LABS: NEUTROPHILS % (AUTO) 90.8 % (40.0-70.0)
[2018-09-20 07:45] VITALS: BP 150/88
[2018-09-20] MEDS: OxyCODONE HCL/ACETAMINOPHEN 10-325 MG TABLET PO PRN ×3 (08:58→17:38)
[2018-09-20] MEDS ORDERED: NICOTINE 21 MG/24 HOUR PATCH TD SCH (09:00)
[2018-09-20] MEDS ORDERED: FUROSEMIDE 80 MG TABLET PO SCH (09:00)
[2018-09-20] MEDS ORDERED: ATORVASTATIN CALCIUM 40 MG TABLET PO SCH (09:00)
[2018-09-20] MEDS ORDERED: TAMSULOSIN HCL 0.4 MG CAPSULE PO SCH (09:00)
[2018-09-20] MEDS ORDERED: SitaGLIPtin PHOSPHATE 100 MG TABLET PO SCH (09:00)
[2018-09-20] MEDS ORDERED: SitaGLIPtin PHOSPHATE 25 MG TABLET PO SCH (09:00)
[2018-09-20] MEDS ORDERED: LISINOPRIL 20 MG TABLET PO SCH (09:00)
[2018-09-20] MEDS ORDERED: PANTOPRAZOLE SODIUM 40 MG/VIAL IVP SCH (09:00)
[2018-09-20] MEDS ORDERED: PIOGLITAZONE HCL 15 MG TABLET PO SCH (09:00)
[2018-09-20] MEDS: MetFORMIN HCL 500 MG TABLET PO SCH ×2 (09:06→17:38)
[2018-09-20] MEDS: AmLODIPine BESYLATE 5 MG TABLET PO SCH (09:07)
[2018-09-20] MEDS: DOCUSATE SODIUM 100 MG CAPSULE PO SCH (09:07)
[2018-09-20] MEDS: SIMVASTATIN 10 MG TABLET PO SCH ×2 (09:08→09:20)
[2018-09-20] MEDS: NICOTINE 21 MG/24 HOUR PATCH TD SCH (09:09)
[2018-09-20] MEDS: PREGABALIN 75 MG CAPSULE PO SCH (09:09)
[2018-09-20] MEDS: CARVEDILOL 12.5 MG TABLET PO SCH (09:09)
[2018-09-20] MEDS ORDERED: SITA100 PO (11:10)
[2018-09-20 12:05] VITALS: BP 143/76
[2018-09-20 16:20] VITALS: BP 144/69
[2018-09-20 20:28] LABS: GLUCOMETER DEV NAME(LOC) 6N.2; GLUCOSE,POINT OF CARE 173 MG/DL (70-110)
[2018-09-26] MEDS ORDERED: TESTOSTERONE CYPIONATE 200 MG/ML VIAL IM SCH (09:00)
== END 2018-09-20 19:30 | DRG 321 ==
LOC: 5N 10:15 → 4E 15:19
PROVIDERS: ADMIT Neurological Surgery; ATTEND Neurological Surgery
PROC: 0RG10A0 Fusion of Cervical Vertebral Joint with Interbody Fusion Device, Anterior Approach, Anterior Column, Open Approach (ICD-10-PCS; 2018-09-19)
PROC: 0RB30ZZ Excision of Cervical Vertebral Disc, Open Approach (ICD-10-PCS; principal; 2018-09-19 13:00)
DX: M48.02 Spinal stenosis, cervical region (principal); F20.9 Schizophrenia, unspecified; E11.9 Type 2 diabetes mellitus without complications; E78.5 Hyperlipidemia, unspecified; F41.9 Anxiety disorder, unspecified; I10 Essential (primary) hypertension; E78.00 Pure hypercholesterolemia, unspecified; Z83.3 Family history of diabetes mellitus; Z82.49 Family history of ischemic heart disease and other diseases of the circulatory system; Z86.73 Personal history of transient ischemic attack (TIA), and cerebral infarction without residual deficits
CPT/HCPCS: 72040; 87081; 97162; 97530; C9113; C9290; G0238; J0131; J0330; J1100; J1170; J1885; J2175; J2250; J2270; J2405; J2704; J3010; J3370; J3490; J7050; J7120

== ENCOUNTER 2020-09-27 10:15 | Emergency (ER) | payer OTHER ==
[~2020-09-27] VITALS: Ht 188 cm; Wt 127.3 kg
[~2020-09-27 10:15] MED LIST changes: +AMLO-257 PO; -AMLO-511 PO; -LISI-662 PO; +LISI-894 PO; -SENN-176 PO; +SENN-277 PO; +SITA100 PO; -SITA25 PO; +TAMS-13 PO; -TAMS0.4C32 PO
[2020-09-27 10:34] LABS: GLUCOSE,POINT OF CARE 117 MG/DL (70-110)
[2020-09-27 11:45] VITALS: BP 133/75
== END 2020-09-27 12:18 | disposition home or self-care (01) ==
LOC: EMS 10:15
DX: H61.23 Impacted cerumen, bilateral (principal); E11.9 Type 2 diabetes mellitus without complications; E78.00 Pure hypercholesterolemia, unspecified; I10 Essential (primary) hypertension; F20.9 Schizophrenia, unspecified; G89.29 Other chronic pain; F17.210 Nicotine dependence, cigarettes, uncomplicated
CPT/HCPCS: 69209; 96372; 99282; 99285

== ENCOUNTER 2021-11-02 10:18 | Emergency (ER) | payer OTHER ==
[~2021-11-02] VITALS: Ht 188 cm; Wt 127.3 kg
[~2021-11-02 10:18] MED LIST changes: +METF-1211 PO; -METF-960 PO; -PIOG15TA6 PO; -SENN-277 PO; -TAMS-13 PO
[2021-11-02 11:27] LABS: BASOPHILS % (AUTO) 0.9 % (0.0-2.0); EOSINOPHILS % (AUTO) 3.9 % (1.0-6.0); HEMATOCRIT 47.5 % (41-53); HEMOGLOBIN 17.1 g/dL (13.5-17.5); LYMPHOCYTES # (AUTO) 1.2 K/uL (1.0-4.8); LYMPHOCYTES % (AUTO) 17.8 % (22.0-44.0); MEAN CORPUSCULAR HEMOGLOBIN 32.5 pg (26.0-34.0); MEAN CORPUSCULAR HGB CONC 35.9 G/dL (31.0-37.0); MEAN CORPUSCULAR VOLUME 90 fL (80-100); MONOCYTES # (AUTO) 0.6 K/uL (0.1-1.0); MONOCYTES % (AUTO) 8.9 % (2.0-9.0); NEUTROPHILS # (AUTO) 4.7 K/uL (1.8-7.7); NEUTROPHILS % (AUTO) 68.5 % (40.0-70.0); PLATELET COUNT (AUTO) 217 K/uL (150-450); RED BLOOD CELL COUNT(AUTO) 5.26 MIL/uL (4.50-5.90); RED CELL DISTRIBUTION WIDTH 12.9 % (11.5-14.5)
[2021-11-02 11:39] LABS: ANION GAP 7 mmol/L (8-16); CALCIUM, TOTAL 8.9 mg/dL (8.8-10.5); CARBON DIOXIDE 30 mmol/L (22-29); CHLORIDE 101 mmol/L (98-107); CREATININE 0.87 mg/dL (0.60-1.30); GLOMERULAR FILTR. RATE CALC > 60 mL/min (>60); GLUCOSE,RANDOM 132 mg/dL (70-110); POTASSIUM 3.7 mmol/L (3.5-5.1); SODIUM SERUM 138 mmol/L (136-145); UREA NITROGEN, BLOOD 17 mg/dL (7-18)
[2021-11-02 11:53] LABS: ALANINE AMINOTRANSFERASE 47 U/L (12-78); ALBUMIN 4.1 g/dL (3.4-5.0); ALKALINE PHOSPHATASE 75 U/L (46-116); ASPARTATE AMINOTRANSFERASE 20 U/L (15-37); BILIRUBIN,TOTAL 0.7 mg/dL (0.1-1.0); TOTAL PROTEIN, SERUM 7.4 g/dL (6.4-8.2)
[2021-11-02 12:03] LABS: APPEARANCE,URINE CLEAR (CLEAR); BILIRUBIN,URINE NEGATIVE (NEGATIVE); GLUCOSE, URINE (UA) NEGATIVE (NEGATIVE); KETONES,URINE NEGATIVE (NEGATIVE); LEUKOCYTE ESTERASE ,URINE NEGATIVE (NEGATIVE); NITRATE,URINE NEGATIVE (NEGATIVE); OCCULT BLOOD,URINE NEGATIVE (NEGATIVE); PROTEIN,URINE NEGATIVE (NEGATIVE); SPECIFIC GRAVITIY, URINE 1.016 (1.003-1.030); UROBILINOGEN,URINE <=1.0 mg/dL (<=1.0)
[2021-11-02 12:07] LABS: BACTERIA,URINE None Seen /HPF (None Seen); RBC,URINE None Seen /HPF (0-2); WBC,URINE None Seen /HPF (0-5)
[2021-11-02 14:01] VITALS: BP 130/78
== END 2021-11-02 14:04 | disposition home or self-care (01) ==
LOC: EMS 10:23
DX: N39.0 Urinary tract infection, site not specified (principal); N41.9 Inflammatory disease of prostate, unspecified; F20.9 Schizophrenia, unspecified; E11.9 Type 2 diabetes mellitus without complications; E78.00 Pure hypercholesterolemia, unspecified; I10 Essential (primary) hypertension; G89.29 Other chronic pain; F17.210 Nicotine dependence, cigarettes, uncomplicated; Z79.899 Other long term (current) drug therapy
CPT/HCPCS: 80053; 81001; 82962; 84484; 85025; 99283

== ENCOUNTER 2023-04-09 08:02 | Emergency (ER) | payer OTHER ==
[~2023-04-09] VITALS: Ht 188 cm; Wt 127.3 kg
[2023-04-09 08:09] VITALS: TEMP 98.2
[2023-04-09 08:41] LABS: LYMPHOCYTES # (AUTO) 1.2 K/uL (1.0-4.8); MEAN CORPUSCULAR VOLUME 91 fL (80-100); MONOCYTES # (AUTO) 0.6 K/uL (0.1-1.0); RED CELL DISTRIBUTION WIDTH 12.7 % (11.5-14.5); WHITE BLOOD COUNT (AUTO) 6.4 K/uL (4.5-11.0)
[2023-04-09 08:45] LABS: BASOPHILS % (AUTO) 0.7 % (0.0-2.0); EOSINOPHILS % (AUTO) 6.3 % (1.0-6.0); HEMOGLOBIN 17.5 g/dL (13.5-17.5); LYMPHOCYTES % (AUTO) 19.4 % (22.0-44.0); MEAN CORPUSCULAR HEMOGLOBIN 31.3 pg (26.0-34.0); MEAN CORPUSCULAR HGB CONC 34.3 G/dL (31.0-37.0); MONOCYTES % (AUTO) 8.7 % (2.0-9.0); NEUTROPHILS # (AUTO) 4.1 K/uL (1.8-7.7); NEUTROPHILS % (AUTO) 64.9 % (40.0-70.0); PLATELET COUNT (AUTO) 203 K/uL (150-450); RED BLOOD CELL COUNT(AUTO) 5.59 MIL/uL (4.50-5.90)
[2023-04-09 08:56] LABS: ANION GAP 7 mmol/L (8-16); CALCIUM, TOTAL 8.7 mg/dL (8.8-10.5); CARBON DIOXIDE 29 mmol/L (22-29); CHLORIDE 100 mmol/L (98-107); CREATININE 0.87 mg/dL (0.60-1.30); GLOMERULAR FILTR. RATE CALC > 60 mL/min (>60); GLUCOSE,RANDOM 199 mg/dL (70-110); POTASSIUM 3.9 mmol/L (3.5-5.1); SODIUM SERUM 136 mmol/L (136-145); UREA NITROGEN, BLOOD 23 mg/dL (7-18)
[2023-04-09] MEDS ORDERED: KETOROLAC TROMETHAMINE 30 MG/ML VIAL IVP ONE (09:00)
[2023-04-09] MEDS ORDERED: METHOCARBAMOL 500 MG TABLET PO ONE (09:00)
[2023-04-09 09:03] LABS: ALANINE AMINOTRANSFERASE 66 U/L (12-78); ALKALINE PHOSPHATASE 104 U/L (46-116); ASPARTATE AMINOTRANSFERASE 23 U/L (15-37); BILIRUBIN,TOTAL 0.7 mg/dL (0.1-1.0); LIPASE 59 U/L (16-77); TOTAL PROTEIN, SERUM 7.4 g/dL (6.4-8.2)
[2023-04-09 09:04] LABS: TROPONIN I-HIGH SENSITIVITY 9 ng/L (<76)
[2023-04-09 09:30] LABS: APPEARANCE,URINE CLEAR (CLEAR); BILIRUBIN,URINE NEGATIVE (NEGATIVE); COLOR,URINE LIGHT YELLOW (YELLOW); GLUCOSE, URINE (UA) NEGATIVE (NEGATIVE); KETONES,URINE NEGATIVE (NEGATIVE); LEUKOCYTE ESTERASE ,URINE NEGATIVE (NEGATIVE); NITRATE,URINE NEGATIVE (NEGATIVE); OCCULT BLOOD,URINE NEGATIVE (NEGATIVE); PH,URINE 5.5 (5.0-8.0); PROTEIN,URINE NEGATIVE (NEGATIVE); SPECIFIC GRAVITIY, URINE 1.019 (1.003-1.030); UROBILINOGEN,URINE <=1.0 mg/dL (<=1.0)
[2023-04-09] MEDS ORDERED: OxyCODONE HCL/ACETAMINOPHEN 10-325 MG TABLET PO ONE (14:15)
[2023-04-09 15:35] VITALS: BP 131/71; PULSE 79; RESP 18
[2023-04-09] MEDS ORDERED: IBUP-1492 PO (15:40)
[2023-04-09] MEDS ORDERED: METH-659 PO (15:40)
[2023-04-09] MEDS ORDERED: OXYC-38 PO (15:41)
== END 2023-04-09 16:13 | disposition home or self-care (01) ==
LOC: EMS 08:06
DX: K40.90 Unilateral inguinal hernia, without obstruction or gangrene, not specified as recurrent (principal); E11.9 Type 2 diabetes mellitus without complications; E78.00 Pure hypercholesterolemia, unspecified; I10 Essential (primary) hypertension; F20.9 Schizophrenia, unspecified; G89.29 Other chronic pain; F17.210 Nicotine dependence, cigarettes, uncomplicated; Z86.73 Personal history of transient ischemic attack (TIA), and cerebral infarction without residual deficits
CPT/HCPCS: 99285; 72131; 96374; 71045; 80053; 81003; 83690; 84484; 85025; 36415; 74176; 93005; J1885

== ENCOUNTER 2024-01-27 09:50 | Emergency (ER) | payer OTHER ==
[~2024-01-27] VITALS: Ht 188 cm; Wt 125.0 kg
[~2024-01-27 09:50] MED LIST changes: +IBUP-1492 PO; +METH-659 PO; +OXYC-38 PO
[2024-01-27 09:55] VITALS: TEMP 98.1
[2024-01-27] MEDS ORDERED: IOHEXOL 350 MG/ML 100 ML VIAL ONE (10:33)
[2024-01-27] MEDS ORDERED: SODIUM CHLORIDE 0.9% 100 ML ONE (10:34)
[2024-01-27 10:57] LABS: BASOPHILS % (AUTO) 1.1 % (0.0-2.0); EOSINOPHILS % (AUTO) 4.3 % (1.0-6.0); HEMATOCRIT 35.4 % (41-53); HEMOGLOBIN 12.3 g/dL (13.5-17.5); LYMPHOCYTES # (AUTO) 1.3 K/uL (1.0-4.8); LYMPHOCYTES % (AUTO) 19.6 % (22.0-44.0); MEAN CORPUSCULAR HEMOGLOBIN 31.5 pg (26.0-34.0); MEAN CORPUSCULAR HGB CONC 34.9 G/dL (31.0-37.0); MEAN CORPUSCULAR VOLUME 90 fL (80-100); MONOCYTES # (AUTO) 0.5 K/uL (0.1-1.0); MONOCYTES % (AUTO) 8.2 % (2.0-9.0); NEUTROPHILS # (AUTO) 4.4 K/uL (1.8-7.7); NEUTROPHILS % (AUTO) 66.8 % (40.0-70.0); PLATELET COUNT (AUTO) 223 K/uL (150-450); RED BLOOD CELL COUNT(AUTO) 3.92 MIL/uL (4.50-5.90); RED CELL DISTRIBUTION WIDTH 12.8 % (11.5-14.5); WHITE BLOOD COUNT (AUTO) 6.6 K/uL (4.5-11.0)
[2024-01-27 11:00] LABS: ANION GAP 12 mmol/L (8-16); CARBON DIOXIDE 26 mmol/L (22-29); CHLORIDE 99 mmol/L (98-107); CREATININE 0.94 mg/dL (0.60-1.30); GLOMERULAR FILTR. RATE CALC > 60 mL/min (>60); GLUCOSE,RANDOM 258 mg/dL (70-110); POTASSIUM 3.7 mmol/L (3.5-5.1); SODIUM SERUM 137 mmol/L (136-145); UREA NITROGEN, BLOOD 17 mg/dL (7-18)
[2024-01-27 11:07] LABS: ALANINE AMINOTRANSFERASE 54 U/L (12-78); ALBUMIN 3.9 g/dL (3.4-5.0); ALKALINE PHOSPHATASE 125 U/L (46-116); ASPARTATE AMINOTRANSFERASE 20 U/L (15-37); BILIRUBIN,TOTAL 0.4 mg/dL (0.1-1.0); LIPASE 45 U/L (16-77); TOTAL PROTEIN, SERUM 7.3 g/dL (6.4-8.2)
[2024-01-27] MEDS: KETOROLAC TROMETHAMINE 30 MG/ML VIAL IVP ONE (11:09)
[2024-01-27 12:46] LABS: APPEARANCE,URINE CLEAR (CLEAR); BILIRUBIN,URINE NEGATIVE (NEGATIVE); COLOR,URINE LIGHT YELLOW (YELLOW); GLUCOSE, URINE (UA) NEGATIVE (NEGATIVE); KETONES,URINE NEGATIVE (NEGATIVE); LEUKOCYTE ESTERASE ,URINE NEGATIVE (NEGATIVE); NITRATE,URINE NEGATIVE (NEGATIVE); OCCULT BLOOD,URINE NEGATIVE (NEGATIVE); PROTEIN,URINE NEGATIVE (NEGATIVE); SPECIFIC GRAVITIY, URINE 1.019 (1.003-1.030); UROBILINOGEN,URINE <=1.0 mg/dL (<=1.0)
[2024-01-27] MEDS ORDERED: ACET-3385 PO (13:39)
[2024-01-27 14:06] VITALS: BP 130/56; PULSE 78; RESP 15
== END 2024-01-27 14:25 | disposition home or self-care (01) ==
LOC: EMS 09:50
DX: R10.32 Left lower quadrant pain (principal); E11.9 Type 2 diabetes mellitus without complications; I10 Essential (primary) hypertension; F17.210 Nicotine dependence, cigarettes, uncomplicated
CPT/HCPCS: 99285; 74177; 96374; 80048; 80076; 81003; 83690; 85025; 36415; 82962; Q9967; J1885; J7050